=== PATIENT | female | born 1985 | race Asian ===

== ENCOUNTER → 2016-09-25 | Outpatient (CLI) | payer OTHER | LOC: MW.CHOBGYN 16:21 | PROVIDERS: ATTEND Obstetrics & Gynecology | DX: Z33.1 Pregnant state, incidental (principal) | CPT/HCPCS: 87081 ==

== ENCOUNTER 2016-10-05 06:39 | Inpatient (IN) | payer OTHER ==
[2016-10-05] MEDS ORDERED: Misoprostol 200 MCG Tab PO PRN (07:45)
[2016-10-05] MEDS ORDERED: Sodium Chloride 0.9% 2.5 ML Syringe FLUSH PRN (07:45)
[2016-10-05] MEDS ORDERED: Lidocaine 1% 50 ML MDV INJECT PRN (07:45)
[2016-10-05] MEDS ORDERED: Sodium Chloride 0.9% 10 ML Syringe FLUSH PRN (07:45)
[2016-10-05] MEDS ORDERED: Carboprost Tromethamine 250 MCG/1 ML Amp IM PRN (07:45)
[2016-10-05] MEDS ORDERED: Oxytocin/Lactated Ringers 30 UNIT/500 ML BAG IV SCH (07:45)
[2016-10-05] MEDS ORDERED: Butorphanol 1 MG/ML SDV IVPUSH PRN (07:45)
[2016-10-05] MEDS ORDERED: Water For Irrigation,Sterile 1,000 ML Container IRR PRN (07:45)
[2016-10-05] MEDS ORDERED: Lactated Ringers 1,000 ML IV SCH (07:45)
[2016-10-05] MEDS ORDERED: Methylergonovine 0.2 MG/1 ML Amp IM PRN (07:45)
[2016-10-05] MEDS ORDERED: Nalbuphine 10 MG/1 ML Vial IVPUSH PRN (07:45)
--- NOTE | 2016-10-05 07:55 | PCM.LDHP ---
L&D History of Present Illness - General Date of Service: 10/05/16 Admit Problem/Dx: Patient Status Order with Admit Dx/Problem 10/05/16 06:54 Patient Status [ADT] Routine 10/05/16 07:46 Patient Status [ADT] Routine Admission Diagnosis/Problem Admission Diagnosis/Problem 10/05/16 07:50 31 yo EDC 10/25/2016 37 1/7wks SROM clear at 0030 this am. B+, RI, GBS neg. SVE /-1 Source of Information: Patient History Limitations: Reports: No limitations - History of Present Illness Timing/Duration: Reports: minutes: Location, : Reports: Abdomen Quality: Reports: Sharp Severity: severe Improves with: Reports: None Worsens with: Reports: None Associated Symptoms: Reports: vaginal fluid (SROM clear) - Related Data Allergies/Adverse Reactions: Allergies Allergy/AdvReac Type Severity Reaction Status Date / Time No Known Allergies Allergy Verified 04/26/16 16:39 Home Medications: Home Meds Aspirin 81 mg PO ONETIME 04/26/16 [History] Past Medical History - Past Health History Medical/Surgical History: Denies Medical/Surgical History HEENT History: Reports: None Cardiovascular History: Reports: None Respiratory History: Reports: None Gastrointestinal History: Reports: None Genitourinary History: Reports: None PREHEMMER History: Reports: Neurological History: Reports: None Psychiatric History: Reports: None Endocrine/Metabolic History: Reports: None Hematologic History: Reports: None Oncologic (Cancer) History: Reports: None Dermatologic History: Reports: None - Infectious Disease History Infectious Disease History: Reports: Chicken pox Social & Family History - Family History Family Medical History: Noncontributory HEENT: Reports: None Cardiac: Reports: Hypertension, Prior cardiac arrest Musculoskeletal: Reports: Arthritis Endocrine/Metabolic: Reports: Diabetes, type II - Tobacco Use Smoking Status *Q: Never Smoker Second Hand Smoke Exposure: No - Caffeine Use Caffeine Use: Reports: Soda - Recreational Drug Use Recreational Drug Use: No H&P Review of Systems - Review of Systems: Review Of Systems: See Below General: Reports: no symptoms HEENT: Reports: no symptoms Pulmonary: Reports: No Symptoms Cardiovascular: Reports: no symptoms Gastrointestinal: Reports: No symptoms Genitourinary: Reports: no symptoms Musculoskeletal: Reports: no symptoms Skin: Reports: no symptoms Psychiatric: Reports: no symptoms Neurological: Reports: No Symptoms Hematologic/Lymphatic: Reports: no symptoms Immunologic: Reports: no symptoms L&D Exam - Exam Exam: See Below - Vital Signs Weight: 72.2 kg - OB Specific Fundal Height in cm: 37 Contraction Intensity: Moderate to Strong movement: active heart tones: present - Longoria Score Longoria Score Cervix Position: Anterior Longoria Score Consistency: Soft Longoria Score Effacement: >80% Longoria Score Dilation: > 5 cm Longoria Score Infant's Station: -1 ,0 Longoria Score Total: 12 - Exam General: alert, oriented, cooperative HEENT: Hearing intact Lungs: Normal respiratory effort Abdomen: soft (gravid) Rectal Exam: Deferred Genitourinary: Normal bimanual exam, Cervical dilitation, Cervical fluid Back Exam: full range of motion Extremities: normal inspection Skin: warm, dry, intact Neurological: cranial nerves intact Psychiatric: alert, normal affect, normal mood - Patient Data Lab Results last 24 hrs: Laboratory Results - last 24 hr 10/05/16 Range/Units 06:45 Membrane Rupture POSITIVE - Problem List (1) Supervision of normal IUP (intrauterine ) in multigravida SNOMED Code(s): 316519234, 056188141, 969693205 ICD Code: Z34.90 - ENCNTR FOR SUPRVSN OF NORMAL , UNSP, UNSP TRIMESTER Status: Acute Priority: High Current Visit: Yes Qualifiers: Trimester: third trimester Qualified Code(s): Z34.93 - Encounter for supervision of normal , unspecified, third trimester (2) History of demise, not currently SNOMED Code(s): 741465165 ICD Code: Z87.59 - PERSONAL HISTORY OF COMP OF PREG, CHLDBRTH AND THE PUERP Status: Acute Priority: Low Current Visit: Yes Problem List Initiated/Reviewed/Updated: Yes Orders Last 24hrs: Active Orders 24 hr Category Date Time Status Patient Status [ADT] Routine ADT 10/05/16 06:54 Active Patient Status [ADT] Routine ADT 10/05/16 07:46 Ordered Heart Tones [RC] CONTINUOUS Care 10/05/16 07:46 Ordered Non Stress Test [RC] PER UNIT ROUTINE Care 10/05/16 06:54 Active Non Stress Test [RC] PER UNIT ROUTINE Care 10/05/16 07:46 Ordered May Shower [RC] ASDIRECTED Care 10/05/16 07:46 Ordered Notify Provider [RC] PRN Care 10/05/16 07:46 Ordered Up ad Zoe [RC] ASDIRECTED Care 10/05/16 06:54 Active Up ad Zoe [RC] ASDIRECTED Care 10/05/16 07:46 Ordered Vaginal Exam [RC] Click To Edit Care 10/05/16 06:54 Active Vaginal Exam [RC] PRN Care 10/05/16 07:46 Ordered Vital Signs [RC] PER UNIT ROUTINE Care 10/05/16 06:54 Active Vital Signs [RC] PER UNIT ROUTINE Care 10/05/16 07:46 Ordered CBC W/O DIFF,HEMOGRAM [HEME] Routine Lab 10/05/16 07:46 Ordered TYPE AND SCREEN [BBK] Routine Lab 10/05/16 07:46 Ordered Butorphanol [Stadol] Med 10/05/16 07:45 Ordered 1 mg IVPUSH Q1H PRN Carboprost Tromethamine [Hemabate DS] Med 10/05/16 07:45 Ordered 250 mcg IM ASDIRECTED PRN Lactated Ringers @ 150 MLS/HR(1000ml) Med 10/05/16 07:45 Ordered Lactated Ringers [Ringers, Lactated] 1,000 ml IV ASDIRECTED Lidocaine 1% [Xylocaine 1%] Med 10/05/16 07:45 Ordered 50 ml INJECT .ONCE PRN Methylergonovine [Methergine] Med 10/05/16 07:45 Ordered 0.2 mg IM ASDIRECTED PRN Misoprostol [Cytotec] Med 10/05/16 07:45 Ordered 200 mcg PO .ONCE PRN Nalbuphine [Nubain] Med 10/05/16 07:45 Ordered 10 mg IVPUSH Q1H PRN Oxytocin/Lactated Ringers [Pitocin in LR 30 Units/500 Med 10/05/16 07:45 Ordered ML] 30 unit in 500 ml IV TITRATE Sodium Chloride 0.9% [Saline Flush] Med 10/05/16 07:45 Ordered 10 ml FLUSH ASDIRECTED PRN Sodium Chloride 0.9% [Saline Flush] Med 10/05/16 07:45 Ordered 2.5 ml FLUSH ASDIRECTED PRN Water For Irrigation,Sterile [Sterile Water for Med 10/05/16 07:45 Ordered Irrigation] 1,000 ml IRR ASDIRECTED PRN Scalp Electrode [WOMSER] Per Unit Routine Oth 10/05/16 07:46 Ordered Peripheral IV Insertion Adult [OM.PC] Routine Oth 10/05/16 07:46 Ordered Resuscitation Status Routine Resus Stat 10/05/16 06:54 Ordered Medication Orders Butorphanol Tartrate (Stadol) 1 mg IVPUSH Q1H PRN PRN Reason: Pain Carboprost Tromethamine (Hemabate Ds) 250 mcg IM ASDIRECTED PRN PRN Reason: Post Hemorrhage Lactated Ringer's (Ringers, Lactated) 1,000 mls @ 150 mls/hr IV ASDIRECTED SAGE Oxytocin/Lactated Ringer's (Pitocin In Lr 30 Units/500 Ml) 30 unit in 500 mls @ 999 mls/hr IV TITRATE SAGE Stop: 10/05/16 08:16 Lidocaine HCl (Xylocaine 1%) 50 ml INJECT .ONCE PRN PRN Reason: Laceration repair Methylergonovine Maleate (Methergine) 0.2 mg IM ASDIRECTED PRN PRN Reason: Post Hemorrhage Misoprostol (Cytotec) 200 mcg PO .ONCE PRN PRN Reason: Post Hemorrhage Nalbuphine HCl (Nubain) 10 mg IVPUSH Q1H PRN PRN Reason: Pain (severe 7-10) Stop: 10/05/16 09:46 Sodium Chloride (Saline Flush) 10 ml FLUSH ASDIRECTED PRN PRN Reason: Keep Vein Open Sodium Chloride (Saline Flush) 2.5 ml FLUSH ASDIRECTED PRN PRN Reason: Keep Vein Open Sterile Water (Sterile Water For Irrigation) 1,000 ml IRR ASDIRECTED PRN PRN Reason: delivery Assessment/Plan Comment:: A: 31 yo EDC 10/25/2016 37 1/7wks SROM clear at 0030 this am. B+, RI, GBS neg. SVE 8-9/90/-1 P: Admit to L&D, Dr Katz updated on status. Anticipate
[2016-10-05] MEDS ORDERED: Ibuprofen 400 MG Tab PO PRN (10:53)
[2016-10-05] MEDS ORDERED: Witch Hazel Medicated Pads 40/Jar TOP PRN (10:53)
[2016-10-05] MEDS ORDERED: Acetaminophen 500 MG Tab PO PRN ×2 (10:53)
[2016-10-05] MEDS ORDERED: Lanolin 100% Cream 7 GM Tube TOP PRN (10:53)
[2016-10-05] MEDS ORDERED: Benzocaine/Menthol 20%-0.5% Spray 78 GM Cannister TOP PRN (10:53)
[2016-10-05] MEDS ORDERED: oxyCODONE 5 MG Tab PO PRN (10:53)
[2016-10-05] MEDS ORDERED: Docusate Sodium 100 MG Cap PO PRN (10:53)
[2016-10-05] MEDS ORDERED: Bisacodyl 10 MG Supp RECTAL PRN (10:53)
[2016-10-05] MEDS: Ibuprofen 800 MG Tab PO PRN (12:52)
--- NOTE | 2016-10-05 14:39 | OR ---
SURGEON: Les Katz MD DATE OF PROCEDURE: INDICATION: Ms. Tan is a 31-year-old patient. She is para 1-1-0-0. She is followed in our clinic. She is 37 and plus 1 today. Her GBS status was negative. The patient is admitted early in this a.m. in Active Labor. At the time of admission, she was 8-9 cm, vertex with spontaneous rupture of the membrane, and that was confirmed. heart rate was category 1 through the entire process of labor. The patient is declined epidural, and she was able to accomplish normal spontaneous vaginal delivery of a female fetus. score reported to be 9 and 9 and the weight is not available. The placenta delivered spontaneous, complete, and intact without any problem. There was a first-degree perineal laceration, and that was after infiltrated with 1% Xylocaine and repaired in layer with 3-0 Vicryl. ESTIMATED BLOOD LOSS: 350 mL in this delivery. COMPLICATIONS: There was no complication. RAGHAV / YANIQUE /[id number]
[2016-10-06] MEDS: Ibuprofen 800 MG Tab PO PRN (02:36)
[2016-10-06 08:12] VITALS: BP 116/65
--- NOTE | 2016-10-06 08:19 | PCM.DCSUM1 ---
Discharge Summary - Hospital Course Free Text/Narrative:: Discharge home with . Follow up 6 weeks for post or sooner if needed. - Discharge Data Discharge Date: 10/06/16 Discharge Disposition: Home, Self-Care 01 Condition: Good - Discharge Diagnosis/Problem(s) (1) Supervision of normal IUP (intrauterine ) in multigravida SNOMED Code(s): 189512087, 498300898, 181070687 ICD Code: Z34.90 - ENCNTR FOR SUPRVSN OF NORMAL , UNSP, UNSP TRIMESTER Status: Acute Priority: High Current Visit: Yes Qualifiers: Trimester: third trimester Qualified Code(s): Z34.93 - Encounter for supervision of normal , unspecified, third trimester (2) History of demise, not currently SNOMED Code(s): 022476380 ICD Code: Z87.59 - PERSONAL HISTORY OF COMP OF PREG, CHLDBRTH AND THE PUERP Status: Acute Priority: Low Current Visit: Yes (3) (normal spontaneous vaginal delivery) SNOMED Code(s): 42735062 ICD Code: O80 - ENCOUNTER FOR FULL-TERM UNCOMPLICATED DELIVERY Status: Acute Priority: Medium Current Visit: Yes - Patient Instructions Diet: Usual Diet as Tolerated Activity: As Tolerated Driving: Do Not Drive Showering/Bathing: May Shower Notify Provider of: Fever, Increased Pain, Swelling and Redness, Nausea and/or Vomiting - Discharge Plan Home Medications: Home Meds Aspirin 81 mg PO ONETIME 04/26/16 [History] Referrals: [facility] [Outside] Les Katz MD [Physician] - 11/14/16 1:30 pm - Discharge Summary/Plan Comment Discharge Summary/Plan Comment: Discharge home with . Follow up 6 weeks for post or sooner if needed. - General Info Date of Service: 10/06/16 Admission Dx/Problem (Free Text: Patient Status Order with Admit Dx/Problem 10/05/16 06:54 Patient Status [ADT] Routine 10/05/16 07:46 Patient Status [ADT] Routine Admission Diagnosis/Problem Admission Diagnosis/Problem 10/05/16 07:50 31 yo EDC 10/25/2016 37 1/7wks SROM clear at 0030 this am. B+, RI, GBS neg. SVE 8-9/90/-1 Functional Status: Reports: pain controlled, tolerating diet, ambulating, urinating - Review of Systems General: Reports: No Symptoms HEENT: Reports: no symptoms Pulmonary: Reports: no symptoms Cardiovascular: Reports: No Symptoms Gastrointestinal: Reports: No symptoms Genitourinary: Reports: no symptoms Musculoskeletal: Reports: no symptoms Skin: Reports: no symptoms Neurological: Reports: No Symptoms Psychiatric: Reports: no symptoms - Patient Data Vitals - Most Recent: Last Vital Signs Temp 36.4 C 10/06/16 08:00 Pulse 81 10/06/16 08:00 Resp 14 10/06/16 08:00 BP 116/65 10/06/16 08:00 Pulse Ox 94 L 10/06/16 08:00 Weight - Most Recent: 72.2 kg Lab Results - Last 24 hrs: Laboratory Results - last 24 hr 10/05/16 10/05/16 10/06/16 Range/Units 07:52 07:52 05:05 WBC 16.76 H (4.0-11.0) K/uL RBC 5.20 (4.30-5.90) M/uL Hgb 15.2 11.2 L (12.0-16.0) g/dL Hct 42.9 33.1 L (36.0-46.0) % MCV 82.5 (80.0-98.0) fL MCH 29.2 (27.0-32.0) pg MCHC 35.4 (31.0-37.0) g/dL RDW Std Deviation 42.8 (28.0-62.0) fl RDW Coeff of Harriet 14 (11.0-15.0) % Plt Count 287 (150-400) K/uL MPV 9.80 (7.40-12.00) fL Nucleated RBC % 0.0 /100WBC Nucleated RBCs # 0 K/uL Blood Type B POSITIVE Antibody Screen NEGATIVE Cold Antibody Screen POSITIVE Med Orders - Current: Current Medications Acetaminophen (Tylenol Extra Strength) 500 mg PO Q4H PRN PRN Reason: Pain Acetaminophen (Tylenol Extra Strength) 1,000 mg PO Q4H PRN PRN Reason: Pain Benzocaine/Menthol (Dermoplast Pain Relief 20%-0.5% [place]) 78 gm TOP ASDIRECTED PRN PRN Reason: Perineal Comfort Measure Last Admin: 10/05/16 12:51 Dose: 1 can Bisacodyl (Dulcolax) 10 mg RECTAL .ONCE PRN PRN Reason: Constipation Butorphanol Tartrate (Stadol) 1 mg IVPUSH Q1H PRN PRN Reason: Pain Carboprost Tromethamine (Hemabate Ds) 250 mcg IM ASDIRECTED PRN PRN Reason: Post Hemorrhage Docusate Sodium (Colace) 100 mg PO BID PRN PRN Reason: Constipation Last Admin: 10/05/16 12:52 Dose: 100 mg Emollient Ointment (Lansinoh Hpa) 0 gm TOP ASDIRECTED PRN PRN Reason: Sore Nipples Last Admin: 10/06/16 02:37 Dose: 7 gm Lactated Ringer's (Ringers, Lactated) 1,000 mls @ 150 mls/hr IV ASDIRECTED SAGE Last Admin: 10/05/16 08:06 Dose: 150 mls/hr Ibuprofen (Motrin) 400 mg PO Q4H PRN PRN Reason: Pain Ibuprofen (Motrin) 800 mg PO Q6H PRN PRN Reason: Pain Last Admin: 10/06/16 02:36 Dose: 800 mg Lidocaine HCl (Xylocaine 1%) 50 ml INJECT .ONCE PRN PRN Reason: Laceration repair Last Admin: 10/05/16 11:11 Dose: 50 ml Methylergonovine Maleate (Methergine) 0.2 mg IM ASDIRECTED PRN PRN Reason: Post Hemorrhage Misoprostol (Cytotec) 200 mcg PO .ONCE PRN PRN Reason: Post Hemorrhage Oxycodone HCl (Oxycodone) 5 mg PO Q2H PRN PRN Reason: Pain Sodium Chloride (Saline Flush) 10 ml FLUSH ASDIRECTED PRN PRN Reason: Keep Vein Open Sodium Chloride (Saline Flush) 2.5 ml FLUSH ASDIRECTED PRN PRN Reason: Keep Vein Open Sterile Water (Sterile Water For Irrigation) 1,000 ml IRR ASDIRECTED PRN PRN Reason: delivery Last Admin: 10/05/16 11:11 Dose: 1,000 ml Witch Berenice (Tucks) 1 pad TOP ASDIRECTED PRN PRN Reason: comfort care Discontinued Medications Oxytocin/Lactated Ringer's (Pitocin In Lr 30 Units/500 Ml) 30 unit in 500 mls @ 999 mls/hr IV TITRATE SAGE Stop: 10/05/16 08:16 Last Admin: 10/05/16 10:24 Dose: 999 mls/hr Nalbuphine HCl (Nubain) 10 mg IVPUSH Q1H PRN PRN Reason: Pain (severe 7-10) Stop: 10/05/16 09:46 - Exam General: Reports: alert, oriented, cooperative, no acute distress Lungs: Reports: Normal respiratory effort Abdomen: Reports: soft, no tenderness, no distension (Female) Exam: Vaginal bleeding Rectal (Female) Exam: Deferred Back Exam: Reports: normal inspection, full range of motion Extremities: Reports: no edema, normal pulses Skin: Reports: warm, dry, intact Wound/Incisions: Reports: healing well Neurological: Reports: no new focal deficit Psy/Mental Status: Reports: alert, normal affect, normal mood *Q Meaningful Use (DIS) - VTE *Q VTE Criteria *Q: - Stroke *Q Stroke Criteria *Q: - AMI *Q AMI Criteria *Q:
== END 2016-10-06 13:45 | disposition home or self-care (01) | DRG 775 ==
LOC: MW.OBCHECK 06:39 → MW.OB 06:40 → MW.OBCHECK 07:46 → OBSVTOIN 10:23
PROVIDERS: ADMIT Obstetrics & Gynecology; ATTEND Obstetrics & Gynecology
PROC: 10E0XZZ Delivery of Products of Conception, External Approach (ICD-10-PCS; principal; 2016-10-05)
PROC: 0HQ9XZZ Repair Perineum Skin, External Approach (ICD-10-PCS; 2016-10-05)
DX: O42.02 Full-term premature rupture of membranes, onset of labor within 24 hours of rupture (principal); O70.0 First degree perineal laceration during delivery; Z3A.37 37 weeks gestation of pregnancy; Z37.0 Single live birth
CPT/HCPCS: 36415; 59025; 84112; 85014; 85018; 85027; 86156; 86850; 86900; 86901; A9270-GY; J7120

== ENCOUNTER → 2016-10-16 | Outpatient (CLI) | payer OTHER | LOC: MW.CHOBGYN 11:09 | PROVIDERS: ATTEND Obstetrics & Gynecology | DX: N71.9 Inflammatory disease of uterus, unspecified (principal) | CPT/HCPCS: 36415; 85025 ==

== ENCOUNTER 2017-10-29 03:44 | Inpatient (IN) | payer OTHER ==
[2017-10-29] MEDS ORDERED: Sodium Chloride 0.9% 2.5 ML Syringe FLUSH PRN (03:53)
[2017-10-29] MEDS ORDERED: Lidocaine 1% 50 ML MDV INJECT PRN (03:53)
[2017-10-29] MEDS ORDERED: Water For Irrigation,Sterile 1,000 ML Container IRR PRN (03:53)
[2017-10-29] MEDS ORDERED: Carboprost Tromethamine 250 MCG/1 ML Amp IM PRN (03:53)
[2017-10-29] MEDS ORDERED: Nalbuphine 10 MG/1 ML Vial IVPUSH PRN (03:53)
[2017-10-29] MEDS ORDERED: Misoprostol 200 MCG Tab PO PRN (03:53)
[2017-10-29] MEDS ORDERED: Methylergonovine 0.2 MG/1 ML Amp IM PRN (03:53)
[2017-10-29] MEDS ORDERED: Butorphanol 1 MG/ML SDV IVPUSH PRN (03:53)
[2017-10-29] MEDS ORDERED: Tranexamic Acid 1,000 MG in Sodium Chloride 0.9% 100 ML IV PRN (03:53)
[2017-10-29] MEDS ORDERED: Sodium Chloride 0.9% 10 ML Syringe FLUSH PRN (03:53)
[2017-10-29] MEDS ORDERED: Oxytocin/0.9 % Sodium Chloride 30 UNIT/500 ML BAG IV SCH (04:00)
[2017-10-29] MEDS ORDERED: Lactated Ringers 1,000 ML IV SCH (04:00)
--- NOTE | 2017-10-29 04:44 | PCM.LDHP ---
L&D History of Present Illness - General Date of Service: 10/29/17 Admit Problem/Dx: Patient Status Order with Admit Dx/Problem 10/29/17 03:53 Patient Status [ADT] Routine Admission Diagnosis/Problem Admission Diagnosis/Problem 10/29/17 04:35 32yo EDC by u/s 11/18/2017 36 6/7wks, history of 24wk loss of twins, B+, RI, GBS neg. Comes at 9cm SROM clear at 0130 this morning. Source of Information: Patient History Limitations: Reports: No Limitations - History of Present Illness Improves with: Reports: None Worsens with: Reports: None Associated Symptoms: Reports: N - Related Data Allergies/Adverse Reactions: Allergies Allergy/AdvReac Type Severity Reaction Status Date / Time No Known Allergies Allergy Verified 10/29/17 03:59 Home Medications: Home Meds Vit No.130/Iron/FA [ Tablet] 1 tab PO DAILY 10/29/17 [History] Past Medical History - Past Health History Medical/Surgical History: Denies Medical/Surgical History HEENT History: Reports: None Cardiovascular History: Reports: None Respiratory History: Reports: None Gastrointestinal History: Reports: None Genitourinary History: Reports: None [employer] History: Reports: Neurological History: Reports: None Psychiatric History: Reports: None Endocrine/Metabolic History: Reports: None Hematologic History: Reports: None Oncologic (Cancer) History: Reports: None Dermatologic History: Reports: None - Infectious Disease History Infectious Disease History: Reports: Chicken Pox Social & Family History - Family History Family Medical History: Noncontributory HEENT: Reports: None Cardiac: Reports: Hypertension, Prior Cardiac Arrest Musculoskeletal: Reports: Arthritis Endocrine/Metabolic: Reports: Diabetes, type II - Tobacco Use Smoking Status *Q: Never Smoker Second Hand Smoke Exposure: No - Caffeine Use Caffeine Use: Reports: Soda - Recreational Drug Use Recreational Drug Use: No H&P Review of Systems - Review of Systems: Review Of Systems: See Below General: Reports: No Symptoms HEENT: Reports: No Symptoms Pulmonary: Reports: No Symptoms Cardiovascular: Reports: No Symptoms Gastrointestinal: Reports: No Symptoms Genitourinary: Reports: No Symptoms Musculoskeletal: Reports: No Symptoms Skin: Reports: No Symptoms Psychiatric: Reports: No Symptoms Neurological: Reports: No Symptoms Hematologic/Lymphatic: Reports: No Symptoms Immunologic: Reports: No Symptoms L&D Exam - Exam Exam: See Below - Vital Signs Weight: 74.843 kg - OB Specific Contraction Intensity: Strong Movement: Active Heart Tones: Present Heart Rate (FHR) Variability: Moderate (6-25 bmp) Presentation: Vertex - Longoria Score Longoria Score Cervix Position: Anterior Longoria Score Consistency: Soft Longoria Score Effacement: >80% Longoria Score Dilation: > 5 cm Longoria Score 's Station: +1, +2 Longoria Score Total: 13 - Exam General: Alert, Oriented, Cooperative HEENT: Hearing Intact Neck: Supple, Trachea Midline Lungs: Normal Respiratory Effort Rectal Exam: Deferred Genitourinary: Normal external exam, Normal bimanual exam, Cervical dilitation Back Exam: Normal Inspection, Full Range of Motion Extremities: Normal Inspection, Normal Range of Motion, Non-Tender, No Pedal Edema, Normal Capillary Refill Skin: Warm, Dry, Intact Neurological: Cranial Nerves Intact, Reflexes Equal Bilateral, Normal Speech, Normal Tone Psychiatric: Alert, Normal Affect, Normal Mood - Patient Data Lab Results Last 24 hrs: Laboratory Results - last 24 hr 10/29/17 Range/Units 04:04 WBC 13.84 H (4.0-11.0) K/uL RBC 5.22 (4.30-5.90) M/uL Hgb 15.1 (12.0-16.0) g/dL Hct 43.2 (36.0-46.0) % MCV 82.8 (80.0-98.0) fL MCH 28.9 (27.0-32.0) pg MCHC 35.0 (31.0-37.0) g/dL RDW Std Deviation 42.1 (28.0-62.0) fl RDW Coeff of Harriet 14 (11.0-15.0) % Plt Count 327 (150-400) K/uL MPV 9.40 (7.40-12.00) fL Nucleated RBC % 0.0 /100WBC Nucleated RBCs # 0 K/uL Result Diagrams: 10/29/17 04:04 - Problem List (1) Supervision of normal IUP (intrauterine ) in multigravida SNOMED Code(s): 459158413, 051732932, 378918037 ICD Code: Z34.80 - ENCOUNTER FOR SUPRVSN OF NORMAL , UNSP TRIMESTER Status: Acute Priority: High Current Visit: Yes Qualifiers: Trimester: third trimester Qualified Code(s): Z34.83 - Encounter for supervision of other normal , third trimester (2) (normal spontaneous vaginal delivery) SNOMED Code(s): 05558634 ICD Code: O80 - ENCOUNTER FOR FULL-TERM UNCOMPLICATED DELIVERY Status: Acute Priority: High Current Visit: Yes Problem List Initiated/Reviewed/Updated: Yes Orders Last 24hrs: Active Orders 24 hr Category Date Time Status Patient Status [ADT] Routine ADT 10/29/17 03:53 Active Heart Tones [RC] CONTINUOUS Care 10/29/17 03:53 Active Non Stress Test [RC] PER UNIT ROUTINE Care 10/29/17 03:53 Active May Shower [RC] ASDIRECTED Care 10/29/17 03:53 Active Notify Provider [RC] PRN Care 10/29/17 03:53 Active Up ad Zoe [RC] ASDIRECTED Care 10/29/17 03:53 Active Vaginal Exam [RC] PRN Care 10/29/17 03:53 Active Vital Signs [RC] PER UNIT ROUTINE Care 10/29/17 03:53 Active TYPE AND SCREEN [BBK] Routine Lab 10/29/17 04:04 Received Butorphanol [Stadol] Med 10/29/17 03:53 Active 1 mg IVPUSH Q1H PRN Carboprost Tromethamine [Hemabate DS] Med 10/29/17 03:53 Active 250 mcg IM ASDIRECTED PRN Lactated Ringers [Ringers, Lactated] 1,000 ml Med 10/29/17 04:00 Active IV ASDIRECTED Lidocaine 1% [Xylocaine 1%] Med 10/29/17 03:53 Active 50 ml INJECT .ONCE PRN Methylergonovine [Methergine] Med 10/29/17 03:53 Active 0.2 mg IM ASDIRECTED PRN Misoprostol [Cytotec] Med 10/29/17 03:53 Active 200 mcg PO .ONCE PRN Nalbuphine [Nubain] Med 10/29/17 03:53 Active 10 mg IVPUSH Q1H PRN Oxytocin/0.9 % Sodium Chloride [Oxytocin 30 Unit/500 ML Med 10/29/17 04:00 Active -NS] 30 unit in 500 ml IV TITRATE Sodium Chloride 0.9% [Saline Flush] Med 10/29/17 03:53 Active 10 ml FLUSH ASDIRECTED PRN Sodium Chloride 0.9% [Saline Flush] Med 10/29/17 03:53 Active 2.5 ml FLUSH ASDIRECTED PRN Tranexamic Acid [Cyklokapron] 1,000 mg Med 10/29/17 03:53 Active Sodium Chloride 0.9% [Normal Saline] 100 ml IV ONETIME Water For Irrigation,Sterile [Sterile Water for Med 10/29/17 03:53 Active Irrigation] 1,000 ml IRR ASDIRECTED PRN Scalp Electrode [WOMSER] Per Unit Routine Oth 10/29/17 03:53 Ordered Peripheral IV Insertion Adult [OM.PC] Routine Oth 10/29/17 03:53 Ordered Resuscitation Status Routine Resus Stat 10/29/17 03:53 Ordered Medication Orders Butorphanol Tartrate (Stadol) 1 mg IVPUSH Q1H PRN PRN Reason: Pain Carboprost Tromethamine (Hemabate Ds) 250 mcg IM ASDIRECTED PRN PRN Reason: Post Hemorrhage Lactated Ringer's (Ringers, Lactated) 1,000 mls @ 150 mls/hr IV ASDIRECTED [facility] Last Admin: 10/29/17 04:18 Dose: 150 mls/hr Oxytocin/Sodium Chloride (Oxytocin 30 Unit/500 Ml-Ns) 30 unit in 500 mls @ 999 mls/hr IV TITRATE [facility] Last Admin: 10/29/17 04:18 Dose: 999 mls/hr Tranexamic Acid 1,000 mg/ (Sodium Chloride) 110 mls @ 660 mls/hr IV ONETIME PRN PRN Reason: Bleeding Lidocaine HCl (Xylocaine 1%) 50 ml INJECT .ONCE PRN PRN Reason: Laceration repair Last Admin: 10/29/17 04:18 Dose: 50 ml Methylergonovine Maleate (Methergine) 0.2 mg IM ASDIRECTED PRN PRN Reason: Post Hemorrhage Misoprostol (Cytotec) 200 mcg PO .ONCE PRN PRN Reason: Post Hemorrhage Nalbuphine HCl (Nubain) 10 mg IVPUSH Q1H PRN PRN Reason: Pain (severe 7-10) Sodium Chloride (Saline Flush) 10 ml FLUSH ASDIRECTED PRN PRN Reason: Keep Vein Open Sodium Chloride (Saline Flush) 2.5 ml FLUSH ASDIRECTED PRN PRN Reason: Keep Vein Open Sterile Water (Sterile Water For Irrigation) 1,000 ml IRR ASDIRECTED PRN PRN Reason: delivery Assessment/Plan Comment:: Admit / Delivery A:32yo EDC by u/s 11/18/2017 36 6/7wks, history of 24wk loss of twins, B+ , RI, GBS neg. Comes at 9cm SROM clear at 0130 this morning. Delivered at 0410 healthy girl, APGARS 8/9 Wt: 6lb 4oz. 2nd degree lac with repair EBL 150cc. Mother and baby bonding well breast feeding. Dad and big sister at for support. P: Admit, labs, delivery, routine pp plan of care.
[2017-10-29] MEDS ORDERED: Witch Hazel Medicated Pads 40/Jar TOP PRN (04:46)
[2017-10-29] MEDS ORDERED: Ibuprofen 400 MG Tab PO PRN (04:46)
[2017-10-29] MEDS ORDERED: Docusate Sodium 100 MG Cap PO PRN (04:46)
[2017-10-29] MEDS ORDERED: Lanolin 100% Cream 7 GM Tube TOP PRN (04:46)
[2017-10-29] MEDS ORDERED: Benzocaine/Menthol 20%-0.5% Spray 78 GM Cannister TOP PRN (04:46)
[2017-10-29] MEDS ORDERED: Bisacodyl 10 MG Supp RECTAL PRN (04:46)
[2017-10-29] MEDS ORDERED: Ibuprofen 800 MG Tab PO PRN (04:46)
[2017-10-29] MEDS ORDERED: oxyCODONE 5 MG Tab PO PRN (04:46)
[2017-10-29] MEDS ORDERED: Acetaminophen 500 MG Tab PO PRN ×2 (04:46)
--- NOTE | 2017-10-29 04:54 | PCM.DEL ---
L & D Note - General Info Date of Service: 10/29/17 Mother's Due Date: 11/18/17 - Delivery Note Labor: Spontaneous Delivery Outcome: Livebirth Infant Delivery Method: Spontaneous Vaginal Delivery-Single Delivery Mode: Spontaneous Presentation: Vertex Nuchal Cord: None Anesthesia Type: None Anesthetic: Lidocaine (Xylocaine) 1% Plain Local Anesthetic Volume: 2cc Amniotic Fluid Description: Clear Episiotomy Type: None Laceration: 2nd Degree Suture type: Vicryl Suture size: 3-0 Placenta: Intact, Spontaneous Cord: 3 Vessels Estimated Blood Loss: 150 Resuscitation Needed: No Score 1 min: 8 Score 5 min: 9 Second Stage Interventions: Reports: Pushing, Pulls Own Legs Back Delivery Comments (Free Text/Narrative):: of viable female over intact perineum at 0410, head delivered with good pushing and then shoulders and body followed easily. to mothers abd, with RN at bs for evaluation. Delayed cord clamping. Pitocin to IVF, Cord clamped and cut by FOB. Placenta delivered grossly intact at 0414. Bimanual normal, Inspection noted 2nd degree lac that was repaired under 1% lidocaine with 3-0 himanshu in the usual manor. EBL 150cc, APGARS 8/9, wt 6lb 4oz (same as her sister born on 10[birth year]05/2016) Mother and baby are stable and bonding well breast feeding. Father and big sister at bs. - General Info Date of Service: 10/29/17 Admission Dx/Problem (Free Text): Patient Status Order with Admit Dx/Problem 10/29/17 03:53 Patient Status [ADT] Routine Admission Diagnosis/Problem Admission Diagnosis/Problem 10/29/17 04:35 32yo EDC by u/s 11/18/2017 36 6/7wks, history of 24wk loss of twins, B+, RI, GBS neg. Comes at 9cm SROM clear at 0130 this morning. Functional Status: Reports: Pain Controlled, Tolerating Diet - Review of Systems General: Reports: No Symptoms HEENT: Reports: No Symptoms Pulmonary: Reports: No Symptoms Cardiovascular: Reports: No Symptoms Gastrointestinal: Reports: No Symptoms Genitourinary: Reports: No Symptoms Musculoskeletal: Reports: No Symptoms Skin: Reports: No Symptoms Neurological: Reports: No Symptoms Psychiatric: Reports: No Symptoms - Patient Data Weight - Most Recent: 74.843 kg Lab Results Last 24 Hours: Laboratory Results - last 24 hr 10/29/17 Range/Units 04:04 WBC 13.84 H (4.0-11.0) K/uL RBC 5.22 (4.30-5.90) M/uL Hgb 15.1 (12.0-16.0) g/dL Hct 43.2 (36.0-46.0) % MCV 82.8 (80.0-98.0) fL MCH 28.9 (27.0-32.0) pg MCHC 35.0 (31.0-37.0) g/dL RDW Std Deviation 42.1 (28.0-62.0) fl RDW Coeff of Harriet 14 (11.0-15.0) % Plt Count 327 (150-400) K/uL MPV 9.40 (7.40-12.00) fL Nucleated RBC % 0.0 /100WBC Nucleated RBCs # 0 K/uL Med Orders - Current: Current Medications Acetaminophen (Tylenol Extra Strength) 500 mg PO Q4H PRN PRN Reason: Pain Acetaminophen (Tylenol Extra Strength) 1,000 mg PO Q4H PRN PRN Reason: Pain Benzocaine/Menthol (Dermoplast Pain Relief 20%-0.5% [place]) 78 gm TOP ASDIRECTED PRN PRN Reason: Perineal Comfort Measure Bisacodyl (Dulcolax) 10 mg RECTAL .ONCE PRN PRN Reason: Constipation Docusate Sodium (Colace) 100 mg PO BID PRN PRN Reason: Constipation Emollient Ointment (Lansinoh Hpa) 0 gm TOP ASDIRECTED PRN PRN Reason: Sore Nipples Ibuprofen (Motrin) 400 mg PO Q4H PRN PRN Reason: Pain Ibuprofen (Motrin) 800 mg PO Q6H PRN PRN Reason: Pain Oxycodone HCl (Oxycodone) 5 mg PO Q2H PRN PRN Reason: Pain Witch Berenice (Tucks) 1 pad TOP ASDIRECTED PRN PRN Reason: comfort care Discontinued Medications Butorphanol Tartrate (Stadol) 1 mg IVPUSH Q1H PRN PRN Reason: Pain Carboprost Tromethamine (Hemabate Ds) 250 mcg IM ASDIRECTED PRN PRN Reason: Post Hemorrhage Lactated Ringer's (Ringers, Lactated) 1,000 mls @ 150 mls/hr IV ASDIRECTED [facility] Last Admin: 10/29/17 04:18 Dose: 150 mls/hr Oxytocin/Sodium Chloride (Oxytocin 30 Unit/500 Ml-Ns) 30 unit in 500 mls @ 999 mls/hr IV TITRATE [facility] Last Admin: 10/29/17 04:18 Dose: 999 mls/hr Tranexamic Acid 1,000 mg/ (Sodium Chloride) 110 mls @ 660 mls/hr IV ONETIME PRN PRN Reason: Bleeding Lidocaine HCl (Xylocaine 1%) 50 ml INJECT .ONCE PRN PRN Reason: Laceration repair Last Admin: 10/29/17 04:18 Dose: 50 ml Methylergonovine Maleate (Methergine) 0.2 mg IM ASDIRECTED PRN PRN Reason: Post Hemorrhage Misoprostol (Cytotec) 200 mcg PO .ONCE PRN PRN Reason: Post Hemorrhage Nalbuphine HCl (Nubain) 10 mg IVPUSH Q1H PRN PRN Reason: Pain (severe 7-10) Sodium Chloride (Saline Flush) 10 ml FLUSH ASDIRECTED PRN PRN Reason: Keep Vein Open Sodium Chloride (Saline Flush) 2.5 ml FLUSH ASDIRECTED PRN PRN Reason: Keep Vein Open Sterile Water (Sterile Water For Irrigation) 1,000 ml IRR ASDIRECTED PRN PRN Reason: delivery - Exam General: Alert, Oriented, Cooperative Lungs: Normal Respiratory Effort GI/Abdominal Exam: Soft, Non-Tender (Female) Exam: Normal External Exam, Normal Bimanual Exam, Vaginal Bleeding, Vaginal Tears Extremities: Normal Inspection, Normal Range of Motion, Non-Tender, No Pedal Edema, Normal Capillary Refill Skin: Warm, Dry, Intact Wound/Incisions: Healing Well Neurological: No New Focal Deficit, Normal Speech, Normal Tone Psy/Mental Status: Alert, Normal Affect, Normal Mood - Problem List & Annotations (1) Supervision of normal IUP (intrauterine ) in multigravida SNOMED Code(s): 364014063, 753434634, 366362425 Code(s): Z34.80 - ENCOUNTER FOR SUPRVSN OF NORMAL , UNSP TRIMESTER Status: Acute Priority: High Current Visit: Yes Qualifiers: Trimester: third trimester Qualified Code(s): Z34.83 - Encounter for supervision of other normal , third trimester (2) (normal spontaneous vaginal delivery) SNOMED Code(s): 44405394 Code(s): O80 - ENCOUNTER FOR FULL-TERM UNCOMPLICATED DELIVERY Status: Acute Priority: High Current Visit: Yes - Problem List Review Problem List Initiated/Reviewed/Updated: Yes - My Orders Last 24 Hours: My Active Orders 10/29/17 03:53 Heart Tones [RC] CONTINUOUS Non Stress Test [RC] PER UNIT ROUTINE May Shower [RC] ASDIRECTED Notify Provider [RC] PRN Up ad Zoe [RC] ASDIRECTED Vaginal Exam [RC] PRN Vital Signs [RC] PER UNIT ROUTINE 10/29/17 04:04 TYPE AND SCREEN [BBK] Routine 10/29/17 04:46 May Shower [RC] ASDIRECTED Up ad Zoe [RC] ASDIRECTED Vital Signs [RC] PER UNIT ROUTINE Acetaminophen [Tylenol Extra Strength] 1,000 mg PO Q4H PRN Acetaminophen [Tylenol Extra Strength] 500 mg PO Q4H PRN Benzocaine/Menthol [Dermoplast Pain Relief 20%-0.5% [place]] 78 gm TOP ASDIRECTED PRN Bisacodyl [Dulcolax] 10 mg RECTAL .ONCE PRN Docusate Sodium [Colace] 100 mg PO BID PRN Ibuprofen [Motrin] 400 mg PO Q4H PRN Ibuprofen [Motrin] 800 mg PO Q6H PRN Lanolin [Lansinoh HPA] See Dose Instructions TOP ASDIRECTED PRN Witch Berenice [Tucks] 1 pad TOP ASDIRECTED PRN oxyCODONE 5 mg PO Q2H PRN Assess Lochia [WOMSER] Per Unit Routine Assess Uterine Involution [WOMSER] Per Unit Routine Peripheral IV Discontinue [OM.PC] Routine Resuscitation Status Routine 10/29/17 04:47 Patient Status [ADT] Routine 10/29/17 Breakfast Regular Diet [DIET] - Plan Plan:: Admit / Delivery A:32yo EDC by u/s 11/18/2017 36 6/7wks, history of 24wk loss of twins, B+ , RI, GBS neg. Comes at 9cm SROM clear at 0130 this morning. Delivered at 0410 healthy girl, APGARS 8/9 Wt: 6lb 4oz. 2nd degree lac with repair EBL 150cc. Mother and baby bonding well breast feeding. Dad and big sister at for support. P: Admit, labs, delivery, routine pp plan of care.
--- NOTE | 2017-10-30 08:02 | PCM.DCSUM1 ---
Discharge Summary - Hospital Course Free Text/Narrative:: Discharge home with . Follow up 6 weeks for post visit or sooner if needed. - Discharge Data Discharge Date: 10/30/17 Discharge Disposition: Home, Self-Care 01 Condition: Good - Discharge Diagnosis/Problem(s) (1) Supervision of normal IUP (intrauterine ) in multigravida SNOMED Code(s): 125294108, 430715856, 540436283 ICD Code: Z34.80 - ENCOUNTER FOR SUPRVSN OF NORMAL , UNSP TRIMESTER Status: Acute Priority: High Current Visit: Yes Qualifiers: Trimester: third trimester Qualified Code(s): Z34.83 - Encounter for supervision of other normal , third trimester (2) (normal spontaneous vaginal delivery) SNOMED Code(s): 54356541 ICD Code: O80 - ENCOUNTER FOR FULL-TERM UNCOMPLICATED DELIVERY Status: Acute Priority: High Current Visit: Yes - Patient Instructions Diet: Usual Diet as Tolerated Activity: As Tolerated, No Strenuous Activities, Rest and Relax Today Driving: May Drive Today Showering/Bathing: May Shower Notify Provider of: Fever, Increased Pain, Swelling and Redness, Nausea and/or Vomiting Other/Special Instructions: Discharge home with . Follow up 6 weeks for post visit or sooner if needed. - Discharge Plan Home Medications: Home Meds Vit No.130/Iron/FA [ Tablet] 1 tab PO DAILY 10/29/17 [History] Referrals: [facility] [Outside] Les Katz MD [Physician] - 12/10/17 1:30 pm - General Info Date of Service: 10/30/17 Admission Dx/Problem (Free Text: Patient Status Order with Admit Dx/Problem 10/29/17 03:53 Patient Status [ADT] Routine Admission Diagnosis/Problem Admission Diagnosis/Problem 10/29/17 04:35 32yo EDC by u/s 11/18/2017 36 6/7wks, history of 24wk loss of twins, B+, RI, GBS neg. Comes at 9cm SROM clear at 0130 this morning. Functional Status: Reports: Pain Controlled, Tolerating Diet, Ambulating, Urinating - Review of Systems General: Reports: No Symptoms HEENT: Reports: No Symptoms Pulmonary: Reports: No Symptoms Cardiovascular: Reports: No Symptoms Gastrointestinal: Reports: No Symptoms Genitourinary: Reports: No Symptoms Musculoskeletal: Reports: No Symptoms Skin: Reports: No Symptoms Neurological: Reports: No Symptoms Psychiatric: Reports: No Symptoms - Patient Data Vitals - Most Recent: Last Vital Signs Temp 36.6 C 10/30/17 04:00 Pulse 68 10/30/17 04:00 Resp 16 10/30/17 04:00 BP 101/50 L 10/30/17 04:00 Pulse Ox 95 10/30/17 04:00 Weight - Most Recent: 74.843 kg Med Orders - Current: Current Medications Acetaminophen (Tylenol Extra Strength) 500 mg PO Q4H PRN PRN Reason: Pain Acetaminophen (Tylenol Extra Strength) 1,000 mg PO Q4H PRN PRN Reason: Pain Benzocaine/Menthol (Dermoplast Pain Relief 20%-0.5% [place]) 78 gm TOP ASDIRECTED PRN PRN Reason: Perineal Comfort Measure Bisacodyl (Dulcolax) 10 mg RECTAL .ONCE PRN PRN Reason: Constipation Docusate Sodium (Colace) 100 mg PO BID PRN PRN Reason: Constipation Emollient Ointment (Lansinoh Hpa) 0 gm TOP ASDIRECTED PRN PRN Reason: Sore Nipples Ibuprofen (Motrin) 400 mg PO Q4H PRN PRN Reason: Pain Ibuprofen (Motrin) 800 mg PO Q6H PRN PRN Reason: Pain Oxycodone HCl (Oxycodone) 5 mg PO Q2H PRN PRN Reason: Pain Witch Berenice (Tucks) 1 pad TOP ASDIRECTED PRN PRN Reason: comfort care Discontinued Medications Butorphanol Tartrate (Stadol) 1 mg IVPUSH Q1H PRN PRN Reason: Pain Carboprost Tromethamine (Hemabate Ds) 250 mcg IM ASDIRECTED PRN PRN Reason: Post Hemorrhage Lactated Ringer's (Ringers, Lactated) 1,000 mls @ 150 mls/hr IV ASDIRECTED [facility] Last Admin: 10/29/17 04:18 Dose: 150 mls/hr Oxytocin/Sodium Chloride (Oxytocin 30 Unit/500 Ml-Ns) 30 unit in 500 mls @ 999 mls/hr IV TITRATE [facility] Last Admin: 10/29/17 04:18 Dose: 999 mls/hr Tranexamic Acid 1,000 mg/ (Sodium Chloride) 110 mls @ 660 mls/hr IV ONETIME PRN PRN Reason: Bleeding Lidocaine HCl (Xylocaine 1%) 50 ml INJECT .ONCE PRN PRN Reason: Laceration repair Last Admin: 10/29/17 04:18 Dose: 50 ml Methylergonovine Maleate (Methergine) 0.2 mg IM ASDIRECTED PRN PRN Reason: Post Hemorrhage Misoprostol (Cytotec) 200 mcg PO .ONCE PRN PRN Reason: Post Hemorrhage Nalbuphine HCl (Nubain) 10 mg IVPUSH Q1H PRN PRN Reason: Pain (severe 7-10) Sodium Chloride (Saline Flush) 10 ml FLUSH ASDIRECTED PRN PRN Reason: Keep Vein Open Sodium Chloride (Saline Flush) 2.5 ml FLUSH ASDIRECTED PRN PRN Reason: Keep Vein Open Sterile Water (Sterile Water For Irrigation) 1,000 ml IRR ASDIRECTED PRN PRN Reason: delivery - Exam General: Reports: Alert, Oriented, Cooperative, No Acute Distress Lungs: Reports: Normal Respiratory Effort GI/Abdominal Exam: Soft, Non-Tender, No Organomegaly, No Distention, No Abnormal Bruit, No Mass, Pelvis Stable (Female) Exam: Vaginal Bleeding Rectal (Female) Exam: Deferred Back Exam: Reports: Normal Inspection, Full Range of Motion Extremities: Normal Inspection, Normal Range of Motion, Non-Tender, No Pedal Edema, Normal Capillary Refill Skin: Reports: Warm, Dry, Intact Wound/Incisions: Reports: Healing Well Neurological: Reports: No New Focal Deficit, Normal Gait, Normal Speech, Normal Tone Psy/Mental Status: Reports: Alert, Normal Affect, Normal Mood
[2017-10-30 13:34] VITALS: BP 104/68
== END 2017-10-30 12:10 | disposition home or self-care (01) | DRG 775 ==
LOC: MW.OBCHECK 03:44 → MW.OB 03:46 → MW.OBCHECK 03:53 → OBSVTOIN 04:10 → MW.OB 08:07
PROVIDERS: ADMIT Obstetrics & Gynecology; ATTEND Obstetrics & Gynecology
PROC: 10E0XZZ Delivery of Products of Conception, External Approach (ICD-10-PCS; principal; 2017-10-29)
PROC: 0KQM0ZZ Repair Perineum Muscle, Open Approach (ICD-10-PCS; 2017-10-29)
DX: O42.013 Preterm premature rupture of membranes, onset of labor within 24 hours of rupture, third trimester (principal); O70.1 Second degree perineal laceration during delivery; Z3A.36 36 weeks gestation of pregnancy; Z37.0 Single live birth
CPT/HCPCS: 36415; 59025; 59409; 85027; 86156; 86850; 86900; 86901; J2590; J7120

== ENCOUNTER 2020-02-15 12:16 | Observation (INO) | payer OTHER ==
[2020-02-15] MEDS ORDERED: Sodium Chloride 0.9% 10 ML Syringe FLUSH PRN (12:39)
[2020-02-15] MEDS ORDERED: Sodium Chloride 0.9% 10 ML SDV IV PRN (12:39)
[2020-02-15] MEDS ORDERED: Sodium Chloride 0.9% 2.5 ML Syringe FLUSH PRN (12:39)
[2020-02-15] MEDS: Lactated Ringers 1,000 ML IV SCH (13:15)
[2020-02-15] MEDS: Betamethasone Acetate/Betamethasone Sod Phosphate 30 MG/5 ML MDV IM SCH (13:43)
--- NOTE | 2020-02-15 17:09 | US ---
Limited obstetrical ultrasound: Multiple real-time images were obtained transabdominally. Findings: Blood is noted between the placenta and the internal cervical os. No findings of placenta previa is seen at this time. Fluid is seen within the endocervical canal. Impression: 1. Difficult to interpret study without vaginal imaging. 2. Blood believed to be present between the placenta and internal cervical os. Fluid is noted within the endocervical canal. 3. No definite findings of placenta previa are seen. No definite findings of abruption are seen. Diagnostic code #3 Study was dictated in MDT
[2020-02-16] MEDS: Lactated Ringers 1,000 ML IV SCH (08:25)
--- NOTE | 2020-02-16 09:06 | PCM.LDHP ---
L&D History of Present Illness - General Date of Service: 02/15/20 Admit Problem/Dx: Patient Status Order with Admit Dx/Problem 02/15/20 12:39 Patient Status [ADT] Routine Admission Diagnosis/Problem Admission Diagnosis/Problem complications Source of Information: Patient History Limitations: Reports: No Limitations - History of Present Illness Improves with: Reports: None Worsens with: Reports: None Associated Symptoms: Reports: N - Related Data Allergies/Adverse Reactions: Allergies Allergy/AdvReac Type Severity Reaction Status Date / Time No Known Allergies Allergy Verified 02/15/20 12:38 Home Medications: Home Meds Vit No.130/Iron/Folic [ Tablet] 1 tab PO DAILY 10/29/17 [History] Past Medical History - Past Health History Medical/Surgical History: Denies Medical/Surgical History HEENT History: Reports: None Cardiovascular History: Reports: None Respiratory History: Reports: None Gastrointestinal History: Reports: None Genitourinary History: Reports: None [employer]NER History: Reports: Neurological History: Reports: None Psychiatric History: Reports: None Endocrine/Metabolic History: Reports: None Hematologic History: Reports: None Immunologic History: Reports: None Oncologic (Cancer) History: Reports: None Dermatologic History: Reports: None - Infectious Disease History Infectious Disease History: Reports: Chicken Pox Social & Family History - Family History Family Medical History: Noncontributory HEENT: Reports: None Cardiac: Reports: Hypertension, Prior Cardiac Arrest Respiratory: Reports: None GI: Reports: None : Reports: None OBGYN: Reports: Musculoskeletal: Reports: Arthritis Neurological: Reports: None Psychiatric: Reports: None Endocrine/Metabolic: Reports: Diabetes, type II Hematologic: Reports: None Dermatologic: Reports: None Oncologic: Reports: None - Tobacco Use Smoking Status *Q: Never Smoker Second Hand Smoke Exposure: No - Caffeine Use Caffeine Use: Reports: None - Recreational Drug Use Recreational Drug Use: No H&P Review of Systems - Review of Systems: Review Of Systems: See Below General: Reports: No Symptoms HEENT: Reports: No Symptoms Pulmonary: Reports: No Symptoms Cardiovascular: Reports: No Symptoms Gastrointestinal: Reports: No Symptoms Genitourinary: Reports: No Symptoms Musculoskeletal: Reports: No Symptoms Skin: Reports: No Symptoms Psychiatric: Reports: No Symptoms Neurological: Reports: No Symptoms Hematologic/Lymphatic: Reports: No Symptoms Immunologic: Reports: No Symptoms L&D Exam - Exam Exam: See Below - Vital Signs Weight: 72.575 kg - Patient Data Lab Results Last 24 hrs: Laboratory Results - last 24 hr 02/15/20 02/15/20 02/15/20 Range/Units 13:18 13:18 13:55 Hgb 12.6 (12.0-16.0) g/dL Hct 35.5 L (36.0-46.0) % COVID-19 (FADIA) NEGATIVE (NEGATIVE) Blood Type B POSITIVE Antibody Screen NEGATIVE Cold Antibody Screen POSITIVE Crossmatch See Detail 02/15/20 02/16/20 Range/Units 18:01 07:18 Hgb 11.6 L 10.3 L (12.0-16.0) g/dL Hct 33.4 L 29.7 L (36.0-46.0) % COVID-19 (FADIA) (NEGATIVE) Blood Type Antibody Screen Cold Antibody Screen Crossmatch Result Diagrams: 02/16/20 07:18 Problem List Initiated/Reviewed/Updated: Yes Orders Last 24hrs: Active Orders 24 hr Category Date Time Status Patient Status [ADT] Routine ADT 02/15/20 12:39 Active Bedrest Bathroom Privileges [RC] ASDIRECTED Care 02/16/20 08:45 Active Non Stress Test [RC] PER UNIT ROUTINE Care 02/15/20 12:39 Active Up ad Zoe [RC] ASDIRECTED Care 02/15/20 12:39 Active Vaginal Exam [RC] Click to Edit Care 02/15/20 12:39 Active Vital Signs [RC] PER UNIT ROUTINE Care 02/15/20 12:39 Active Regular Diet [DIET] Diet 02/16/20 Breakfast Active COLD ABS [BBK] Routine Lab 02/15/20 13:18 Results RED BLOOD CELLS LP [BBK] Routine Lab 02/15/20 13:18 Results TYPE AND SCREEN [BBK] Routine Lab 02/15/20 13:18 Results Betamet Acet/Betamet Na Phos [Celestone Soluspan 6 MG/ Med 02/15/20 13:00 Active ML] 12 mg IM Q24H Lactated Ringers [Ringers, Lactated] 1,000 ml Med 02/15/20 13:00 Active IV ASDIRECTED Sodium Chloride 0.9% [Normal Saline] Med 02/15/20 12:39 Active 10 ml IV ASDIRECTED PRN Sodium Chloride 0.9% [Saline Flush] Med 02/15/20 12:39 Active 10 ml FLUSH ASDIRECTED PRN Sodium Chloride 0.9% [Saline Flush] Med 02/15/20 12:39 Active 2.5 ml FLUSH ASDIRECTED PRN Peripheral IV Insertion Adult [OM.PC] Urgent Oth 02/15/20 12:39 Ordered Transfuse Red Blood Cells [COMM] Urgent Oth 02/16/20 08:45 Ordered Resuscitation Status Routine Resus Stat 02/15/20 12:39 Ordered Medication Orders Betamethasone Acet/Betameth SodPhos (Celestone Soluspan 6 Mg/Ml) 12 mg IM Q24H [facility] Stop: 02/16/20 13:01 Last Admin: 02/15/20 13:43 Dose: 12 mg Documented by: SIXTO Lactated Ringer's (Ringers, Lactated) 1,000 mls @ 100 mls/hr IV ASDIRECTED [facility] Last Admin: 02/15/20 13:15 Dose: 100 mls/hr Documented by: SIXTO Sodium Chloride (Normal Saline) 10 ml IV ASDIRECTED PRN PRN Reason: IV Use Sodium Chloride (Saline Flush) 10 ml FLUSH ASDIRECTED PRN PRN Reason: Keep Vein Open Sodium Chloride (Saline Flush) 2.5 ml FLUSH ASDIRECTED PRN PRN Reason: Keep Vein Open Assessment/Plan Comment:: This patient is a 22 weeks she have confirmed central placenta previa by the ultrasound she is admitted to labor and delivery in bleeding have relating is moderate speculum examination showed a few blood clots in the vaginal vault removed without any problem the cervical os is visualized no active bleeding is seen coming through the cervical os. Ultrasound there is no evidence of abruption. My plan is to admit the patient to the hospital do observation and serial hematocrits and then gave the patient is steroid and possible blood transfusion if needed.
--- NOTE | 2020-02-16 09:09 | PCM.PNLD ---
Labor Progress Note - VS & Meds Active Medications: Current Medications Betamethasone Acet/Betameth SodPhos ([place] Soluspan 6 Mg/Ml) 12 mg IM Q24H [facility] Stop: 02/16/20 13:01 Last Admin: 02/15/20 13:43 Dose: 12 mg Documented by: Lactated Ringer's (Ringers, Lactated) 1,000 mls @ 100 mls/hr IV ASDIRECTED [facility] Last Admin: 02/15/20 13:15 Dose: 100 mls/hr Documented by: Sodium Chloride (Normal Saline) 10 ml IV ASDIRECTED PRN PRN Reason: IV Use Sodium Chloride (Saline Flush) 10 ml FLUSH ASDIRECTED PRN PRN Reason: Keep Vein Open Sodium Chloride (Saline Flush) 2.5 ml FLUSH ASDIRECTED PRN PRN Reason: Keep Vein Open - Uterine Contractions Uterine Monitoring Mode: None in Use Uterine Resting Tone: Soft - Monitoring Monitor Mode: External Ultrasound - Labor Progress (Free Text) Labor Progress: The patient Is Stable This Morning Heart Rate Is a Category 1. Bleeding slowed down there is no active bleeding over her the hematocrit did drop from 35 to 29 disposition with the future bleeding from her placenta previa I am transfusing this patient 2 units of packed cells today. I am oswaldo start ambulating the patient around the bed and have bathroom privilege. If she is stable and is still not a bleeding tomorrow I may consider discharging her home
[2020-02-16] MEDS ORDERED: Sodium Chloride 0.9% 1,000 ML IV SCH (10:00)
[2020-02-16] MEDS: Betamethasone Acetate/Betamethasone Sod Phosphate 30 MG/5 ML MDV IM SCH (13:28)
[2020-02-16 16:27] VITALS: BP 90/62; PULSE 89
--- NOTE | 2020-02-17 10:14 | PCM.PN ---
- General Info Date of Service: 02/17/20 Functional Status: Reports: Pain Controlled - Review of Systems General: Reports: No Symptoms HEENT: Reports: No Symptoms Pulmonary: Reports: No Symptoms Cardiovascular: Reports: No Symptoms Gastrointestinal: Reports: No Symptoms Genitourinary: Reports: No Symptoms Musculoskeletal: Reports: No Symptoms Skin: Reports: No Symptoms Neurological: Reports: No Symptoms Psychiatric: Reports: No Symptoms - Patient Data Vitals - Most Recent: Last Vital Signs Temp 36.8 C 02/16/20 16:25 Pulse 89 02/16/20 16:25 Resp 18 02/16/20 16:25 BP 90/62 02/16/20 16:25 Pulse Ox 100 02/16/20 16:25 Weight - Most Recent: 72.575 kg I&O - Last 24 Hours: Intake & Output 02/16/20 02/17/20 02/17/20 22:59 06:59 14:59 Intake Total 762 Output Total 500 Balance 262 Lab Results Last 24 Hours: Laboratory Results - last 24 hr 02/15/20 02/16/20 02/17/20 Range/Units 13:18 18:08 06:03 Hgb 12.7 12.4 (12.0-16.0) g/dL Hct 37.5 36.0 (36.0-46.0) % Blood Type B POSITIVE Antibody Screen NEGATIVE Cold Antibody Screen POSITIVE Crossmatch See Detail Med Orders - Current: Current Medications Lactated Ringer's (Ringers, Lactated) 1,000 mls @ 100 mls/hr IV ASDIRECTED [facility] Last Admin: 02/16/20 08:25 Dose: 100 mls/hr Documented by: Sodium Chloride (Normal Saline) 1,000 mls @ 50 mls/hr IV ASDIRECTED [facility] Last Admin: 02/16/20 10:30 Dose: 50 mls/hr Documented by: Sodium Chloride (Normal Saline) 10 ml IV ASDIRECTED PRN PRN Reason: IV Use Sodium Chloride (Saline Flush) 10 ml FLUSH ASDIRECTED PRN PRN Reason: Keep Vein Open Sodium Chloride (Saline Flush) 2.5 ml FLUSH ASDIRECTED PRN PRN Reason: Keep Vein Open Discontinued Medications Betamethasone Acet/Betameth SodPhos ([place]estone Soluspan 6 Mg/Ml) 12 mg IM Q24H [facility] Stop: 02/16/20 13:01 Last Admin: 02/16/20 13:28 Dose: 12 mg Documented by: - Exam General: Alert, Oriented HEENT: Pupils Equal, Pupils Reactive, EOMI, Mucous Membr. Moist/[place] Neck: Supple Lungs: Clear to Auscultation, Normal Respiratory Effort Cardiovascular: Regular Rate, Regular Rhythm GI/Abdominal Exam: Normal Bowel Sounds, Soft, Non-Tender, No Organomegaly, No Distention, No Abnormal Bruit, No Mass, Pelvis Stable (Female) Exam: Normal External Exam, Normal Speculum Exam, Normal Bimanual Exam Back Exam: Normal Inspection, Full Range of Motion Extremities: Normal Inspection, Normal Range of Motion, Non-Tender, No Pedal Edema, Normal Capillary Refill Skin: Warm, Dry, Intact Wound/Incisions: Healing Well Neurological: No New Focal Deficit Psy/Mental Status: Alert, Normal Affect, Normal Mood Sepsis Event Note - Evaluation Sepsis Screening Result: No Definite Risk - Problem List Review Problem List Initiated/Reviewed/Updated: Yes - My Orders Last 24 Hours: My Active Orders 02/16/20 10:00 Sodium Chloride 0.9% [Normal Saline] 1,000 ml IV ASDIRECTED 02/17/20 09:54 Ready for Discharge [RC] PER UNIT ROUTINE - Assessment Assessment:: Patient ambulatory she stopped bleeding. Her hematocrit is stable after transfusion of 2 units of packed cells. I am sending the patient home with instruction of complete bedrest and bathroom privilege on nothing in the vagina and the patient to come back and see me in one week in the office. The patient also instructed if she start bleeding she need to come immediately to the spital - Plan Plan:: This patient is a 22 weeks she have confirmed central placenta previa by the ultrasound she is admitted to labor and delivery in bleeding have relating is moderate speculum examination showed a few blood clots in the vaginal vault removed without any problem the cervical os is visualized no active bleeding is seen coming through the cervical os. Ultrasound there is no evidence of abruption. My plan is to admit the patient to the hospital do observation and serial hematocrits and then gave the patient is steroid and possible blood transfusion if needed.
--- NOTE | 2020-02-17 10:15 | PCM.DCSUM1 ---
Discharge Summary - Hospital Course Diagnosis: Stroke: No - Discharge Data Discharge Date: 02/17/20 Discharge Disposition: Home, Self-Care 01 Condition: Good - Referral to Home Health Primary Care Physician: Les Katz MD - Patient Instructions Diet: Usual Diet as Tolerated, Regular Diet as Tolerated Activity: Bedrest, May Use Bathroom - Discharge Plan Home Medications: Home Meds Vit No.130/Iron/Folic [ Tablet] 1 tab PO DAILY 10/29/17 [History] Patient Handouts: Vaginal Bleeding During , Second Trimester, [id number], Second Trimester of , [id number], Placenta Previa Referrals: [facility] [Outside] Les Katz MD [Primary Care Provider] - 02/24/20 9:00 am - Discharge Summary/Plan Comment DC Time >30 min.: Yes - General Info Date of Service: 02/17/20 Functional Status: Reports: Pain Controlled - Review of Systems General: Reports: No Symptoms HEENT: Reports: No Symptoms Pulmonary: Reports: No Symptoms Cardiovascular: Reports: No Symptoms Gastrointestinal: Reports: No Symptoms Genitourinary: Reports: No Symptoms Musculoskeletal: Reports: No Symptoms Skin: Reports: No Symptoms Neurological: Reports: No Symptoms Psychiatric: Reports: No Symptoms - Patient Data Vitals - Most Recent: Last Vital Signs Temp 36.8 C 02/16/20 16:25 Pulse 89 02/16/20 16:25 Resp 18 02/16/20 16:25 BP 90/62 02/16/20 16:25 Pulse Ox 100 02/16/20 16:25 Weight - Most Recent: 72.575 kg I&O - Last 24 hours: Intake & Output 02/16/20 02/17/20 02/17/20 22:59 06:59 14:59 Intake Total 762 Output Total 500 Balance 262 Lab Results - Last 24 hrs: Laboratory Results - last 24 hr 02/15/20 02/16/20 02/17/20 Range/Units 13:18 18:08 06:03 Hgb 12.7 12.4 (12.0-16.0) g/dL Hct 37.5 36.0 (36.0-46.0) % Blood Type B POSITIVE Antibody Screen NEGATIVE Cold Antibody Screen POSITIVE Crossmatch See Detail Med Orders - Current: Current Medications Lactated Ringer's (Ringers, Lactated) 1,000 mls @ 100 mls/hr IV ASDIRECTED [facility] Last Admin: 02/16/20 08:25 Dose: 100 mls/hr Documented by: Sodium Chloride (Normal Saline) 1,000 mls @ 50 mls/hr IV ASDIRECTED [facility] Last Admin: 02/16/20 10:30 Dose: 50 mls/hr Documented by: Sodium Chloride (Normal Saline) 10 ml IV ASDIRECTED PRN PRN Reason: IV Use Sodium Chloride (Saline Flush) 10 ml FLUSH ASDIRECTED PRN PRN Reason: Keep Vein Open Sodium Chloride (Saline Flush) 2.5 ml FLUSH ASDIRECTED PRN PRN Reason: Keep Vein Open Discontinued Medications Betamethasone Acet/Betameth SodPhos ([place] Soluspan 6 Mg/Ml) 12 mg IM Q24H [facility] Stop: 02/16/20 13:01 Last Admin: 02/16/20 13:28 Dose: 12 mg Documented by: - Exam General: Reports: Alert, Oriented HEENT: Reports: Pupils Equal, Pupils Reactive, EOMI, Mucous Membr. Moist/[place] Neck: Reports: Supple Lungs: Reports: Clear to Auscultation, Normal Respiratory Effort Cardiovascular: Reports: Regular Rate, Regular Rhythm GI/Abdominal Exam: Normal Bowel Sounds, Soft, Non-Tender, No Organomegaly, No Distention, No Abnormal Bruit, No Mass, Pelvis Stable (Female) Exam: Normal External Exam, Normal Speculum Exam, Normal Bimanual Exam Rectal (Female) Exam: Normal Exam, Normal Rectal Tone Back Exam: Reports: Normal Inspection, Full Range of Motion Extremities: Normal Inspection, Normal Range of Motion, Non-Tender, No Pedal Edema, Normal Capillary Refill Skin: Reports: Warm, Dry, Intact Wound/Incisions: Reports: Healing Well Neurological: Reports: No New Focal Deficit Psy/Mental Status: Reports: Alert, Normal Affect, Normal Mood
== END 2020-02-17 12:15 | disposition home or self-care (01) ==
LOC: MW.OBCHECK 12:16 → MW.OB 12:18 → MW.OBCHECK 12:38 → MW.OB 12:39
PROVIDERS: ADMIT Obstetrics & Gynecology; ATTEND Obstetrics & Gynecology
DX: O44.12 Complete placenta previa with hemorrhage, second trimester (principal); Z20.828 Contact with and (suspected) exposure to other viral communicable diseases; Z3A.22 22 weeks gestation of pregnancy
CPT/HCPCS: 36415; 36430; 76815; 85014; 85018; 86156; 86850; 86900; 86901; 86920; 86921; 86922; 87635; 96360; 96361; 96372; G0378; J0702; J7030; J7120; P9016; U0002